=== PATIENT | female | born 1930 | race Caucasian/White ===

== ENCOUNTER → 2017-12-28 | Outpatient (CLI) | payer MEDICARE ==
[~2017-12-28] MED LIST: AMLO10TA2 PO; CHLO1CAP PO; HYDR25TA11 PO; LEVO25TA4 PO; LISI-167 PO; OMEP-110 PO; SIMV40TA3 PO
== END | disposition home or self-care (01) ==
LOC: CFH 12-27 13:19
PROVIDERS: ATTEND Internal Medicine
DX: I65.22 Occlusion and stenosis of left carotid artery (principal); I70.90 Unspecified atherosclerosis
CPT/HCPCS: 93880